=== PATIENT | male | born 1995 | race African-American/Black ===

== ENCOUNTER 2023-06-03 13:29 | Emergency (ER) | payer BC ==
[2023-06-03 13:43] VITALS: BP 145/71
[2023-06-03 13:52] LABS: BILIRUBIN,URINE NEGATIVE (NEGATIVE); GLUCOSE, URINE (UA) NEGATIVE (NEGATIVE); KETONES,URINE (UA) NEGATIVE (NEGATIVE); LEUKOCYTE ESTERASE, URINE NEGATIVE (NEGATIVE); NITRITE,URINE NEGATIVE (NEGATIVE); OCCULT BLOOD,URINE NEGATIVE (NEGATIVE); PROTEIN,URINE NEGATIVE (NEGATIVE); UROBILINOGEN,URINE 0.2 (NORMAL) E.U./dL (NORMAL)
[2023-06-03 13:55] LABS: CLARITY,URINE CLEAR (CLEAR)
--- NOTE | 2023-06-03 14:35 | ED Physician Documentation ---
History of Present Illness - Stated complaint Stated Complaint: MALE - Chief complaint Chief Complaint: General - History obtained from History obtained from: Patient - Additonal information Additional information: Sexually active gentleman has had a several day history of a mildly painful rash to the left side of the penis. Has been with his current partner for 2 weeks. PD PAST MEDICAL HISTORY - Present Medications Home Medications: Ambulatory Orders Medication Instructions Recorded Confirmed Valacyclovir HCl [Valtrex] 1,000 mg PO BID #20 tablet 06/03/23 - Allergies Allergies/Adverse Reactions: Allergies Allergy/AdvReac Type Severity Reaction Status Date / Time No Known Drug Allergies Allergy Verified 06/03/23 13:40 PD ED PE NORMAL - Vitals Vital signs reviewed: Yes - General General: Alert and oriented X 3, No acute distress - Male Male : Other (Vesicular rash on the left side of the penis) - Neuro Neuro: Alert and oriented X 3, Normal speech Results - Vitals Vitals: Vital Signs - 24 hr 06/03/23 13:33 Temperature 36.4 C L Heart Rate 70 Respiratory 17 Rate Blood Pressure 145/71 H O2 Saturation 100 Oxygen O2 Source Room air - Labs Labs: Laboratory Tests 06/03/23 13:30 Urine Color YELLOW Urine Clarity CLEAR Urine pH 7.0 Ur Specific [place] 1.025 Urine Protein NEGATIVE Urine Glucose (UA) NEGATIVE Urine Ketones NEGATIVE Urine Occult Blood NEGATIVE Urine Nitrite NEGATIVE Urine Bilirubin NEGATIVE Urine Urobilinogen 0.2 (NORMAL) Ur Leukocyte Esterase NEGATIVE Ur Microscopic Review NOT INDICATED Urine Culture Comments NOT INDICATED PD Medical Decision Making - ED course ED course: Rashes consistent with herpes 2. Swab sent for confirmation and will start on antiviral therapy. Departure - Departure Disposition: 01 Home, Self Care Clinical Impression: Penile rash Condition: Good Record reviewed to determine appropriate education?: Yes Instructions: ED Herpes Simplex Virus Type 2 Prescriptions: Valacyclovir HCl [Valtrex] 1,000 mg PO BID #20 tablet Comments: As discussed, unfortunately your rash is most consistent with genital herpes. A confirmational swab is pending and you can look up the results in a few days by going to the [email or web address] website and signing up for the patient portal at the top right. Return for new or worsening symptoms. I sent your prescription electronically to the [facility] in [place].
[2023-06-03 20:58] LABS: CHLAMYDIA TRACHOMATIS DNA NEGATIVE (NEGATIVE); NEISSERIA GONORRHOEAE DNA NEGATIVE (NEGATIVE); TRICHOMONAS VAGINALIS DNA NEGATIVE (NEGATIVE)
[2023-06-05 06:10] LABS: HSV-1 DNA Negative (Negative); HSV-2 DNA Positive (Negative)
== END 2023-06-03 14:52 | disposition home or self-care (01) ==
LOC: ED 13:29
DX: N48.89 Other specified disorders of penis (principal)
CPT/HCPCS: 81001; 81003; 87086; 87491; 87529; 87591; 87661; 99283